=== PATIENT | female | born 1970 ===

== ENCOUNTER 2018-09-24 18:06 | Emergency (ER) | payer OTHER ==
[2018-09-24 18:14] VITALS: RESP 18
[2018-09-24] MEDS ORDERED: Naproxen 500 MG TAB PO ONE ×2 (18:35→19:06)
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
[2018-09-24 20:13] VITALS: BP 143/92; PULSE 74; TEMP 98.1; O2SAT 100
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
== END 2018-09-24 20:11 | disposition home or self-care (01) ==
LOC: H.ER 18:06
DX: M54.5 Low back pain (principal); V49.40XA Driver injured in collision with unspecified motor vehicles in traffic accident, initial encounter; Y92.410 Unspecified street and highway as the place of occurrence of the external cause